=== PATIENT | male | born 1990 | race Caucasian/White ===

== ENCOUNTER 2019-02-20 17:46 | Emergency (ER) | payer MEDICAID, OTHER ==
[2019-02-20] MEDS: DEXAMETHASONE 10 MG/ML 1 ML INJ IM (19:01)
[2019-02-20] MEDS: KETOROLAC 30 MG INJ IM (19:01)
[2019-02-20 20:46] LABS: MONOTEST Positive (NEG)
== END 2019-02-20 21:00 | disposition home or self-care (01) ==
LOC: FTE 17:46
DX: B27.90 Infectious mononucleosis, unspecified without complication (principal); Z87.891 Personal history of nicotine dependence
CPT/HCPCS: 86308; 87880; 96372; 99284-25